=== PATIENT | male | born 1990 | race Hispanic/Latino ===

== ENCOUNTER 2017-08-18 18:06 | Emergency (ER) | payer OTHER ==
[2017-08-18 18:18] VITALS: BMI 34.2
[2017-08-18 18:28] LABS: BASO % 0.3 % (0.0-2.0); EOS # 0.3 K/uL (0.0-0.7); HEMOGLOBIN 16.8 g/dL (12.0-18.0); LYMPH # 5.9 K/uL (1.0-4.3); LYMPH % 38.8 % (20.0-40.0); MEAN CELL VOLUME 87.2 fL (80.0-94.0); MEAN CORPUSCULAR HGB CONC 33.2 g/dL (33.0-37.0); MEAN PLATELET VOLUME 10.2 fL (7.2-11.7); MONO # 0.8 K/uL (0.0-0.8); MONO % 5.4 % (0.0-10.0); NEUT # 8.2 K/uL (1.8-7.0); NEUT % 53.5 % (50.0-75.0); RBC 5.8 Mil/uL (4.40-5.90); RED CELL DISTRIBUTION WIDTH 13.7 % (11.5-14.5); WHITE BLOOD COUNT 15.3 K/uL (4.8-10.8)
[2017-08-18 18:40] LABS: ALB/GLOB RATIO 1.2 (1.0-2.1); ALBUMIN 4.8 g/dL (3.5-5.0); ALT/SGPT 17 U/L (21-72); AST/SGOT 20 U/L (17-59); BLOOD UREA NITROGEN 13 mg/dL (9-20); CALCIUM 9.6 mg/dl (8.6-10.4); GFR AFRICAN-AMERICAN > 60; GFR NON-AFRICAN AMERICAN > 60
[2017-08-18] MEDS ORDERED: Iodixanol 320 MG/ML 100 ML BOTTLE IV ONE (18:46)
[2017-08-18] MEDS ORDERED: Dexamethasone 4 mg/1 ml IVP STA (18:47)
[2017-08-18] MEDS ORDERED: levETIRAcetam 1,000 MG in Sodium Chloride 0.9% 100 ML IVPB SCH (19:00)
--- NOTE | 2017-08-18 19:07 | CT ---
EXAM: CT Head Without Intravenous Contrast EXAM DATE/TIME: 08/18/2017 6:18 PM CLINICAL HISTORY: 27 years old, male; Signs and symptoms; Syncope and collapse and other: Seizure; Additional info: Seizure, word finding, ? temporal TECHNIQUE: Axial computed tomography images of the head/brain without intravenous contrast. All CT scans at this facility use one or more dose reduction techniques, viz.: automated exposure control; ma/kV adjustment per patient size (including targeted exams where dose is matched to indication; i.e. head); or iterative reconstruction technique. COMPARISON: There are no prior studies for comparison. FINDINGS: Brain: There is a poorly defined solid and cystic mass in the left frontoparietal region. Mass measures at least 6.5 x 4.5 cm. There may be small foci of hemorrhage within the lesion versus calcification. There is surrounding vasogenic edema. There is effacement of adjacent sulci and gyri. There is partial effacement of the left lateral ventricle. There is mass effect with 8 mm midline shift to the right. Fourth ventricle is midline. No other masses are identified. Kamara-white differentiation is visualized. Ventricles: See above Bones: Cranial vault is intact. Soft tissues: unremarkable Sinuses: There is no acute sinusitis. Ears and mastoids: Middle ears and mastoids are unremarkable. Orbits: Globes are intact. IMPRESSION: Complex 6.5 x 4.5 cm left frontoparietal mass small foci of hemorrhage, mass effect with 8 mm midline shift to the right findings are suspicious for neoplasm MRI suggested for more complete evaluation Findings were discussed with Jose Duque at 7:06 PM EST on 08/18/2017.
--- NOTE | 2017-08-18 19:08 | C.PDOC ---
History Of Present Illness Patient is a 27 y/o male who presents to the ED BIBA s/p first seizure at home. Patient admits to taking Adderall for ADHD. Reports seizure to be witnessed with tonic-clonic activity. In ED, patient seized and collapsed in front of bed with tonic-clonic activity, negative for stool incontinence; Ativan 2mg IM administered immediately. Though patient initially denies any Hx of seizures or drug use, he admits to using ecstasy, acid, lukasz, and alcohol along with a seizure history at the ages of 10 and 16. No other physical complaints at this time. Time Seen by Provider: 08/18/17 18:17 Chief Complaint (Nursing): Seizure History Per: Patient History/Exam Limitations: no limitations Recent Seizure Activity Began: Just Before Arrival, Mins Ago: (upon arrival) Number Of Seizures: Multiple Recent travel outside of the [place]: No Past Medical History Reviewed: Historical Data, Nursing Documentation, Vital Signs Vital Signs: Last Vital Signs Temp 98.6 F 08/18/17 22:28 Pulse 58 L 08/18/17 22:28 Resp 22 08/18/17 22:28 BP 111/72 08/18/17 22:28 Pulse Ox 97 08/18/17 22:56 - Medical History PMH: No Chronic Diseases Surgical History: No Surg Hx Family History: States: No Known Family Hx - Social History Hx Tobacco Use: No Hx Alcohol Use: No Hx Substance Use: No - Immunization History Hx Tetanus Toxoid Vaccination: No Hx Influenza Vaccination: No Hx Pneumococcal Vaccination: No Review Of Systems Neurological: Positive for: Seizures (one [employer]OR and one upon ED arrival) Physical Exam - Physical Exam Appears: Well, Non-toxic, No Acute Distress Head: Atraumatic, Normacephalic Eye(s): bilateral: Normal Inspection, PERRL, EOMI Oral Mucosa: Moist Chest: Symmetrical Cardiovascular: Rhythm Regular, No Murmur Respiratory: Normal Breath Sounds, No Rales, No Rhonchi, No Wheezing Gastrointestinal/Abdominal: Soft, No Tenderness ED Course And Treatment - Laboratory Results Result Diagrams: 08/18/17 18:25 08/18/17 18:25 O2 Sat by Pulse Oximetry: 97 - Other Rad CTA head X-Ray: Interpreted by Me, Viewed By Me Interpretation: IMPRESSION: Unremarkable cervical carotid and vertebral arteries. Thank you for allowing us to participate in the care of your patient. - CT Scan/US CT Head Other Rad Studies (CT/US): Interpreted By Me, Read By Radiologist CT/US Interpretation: IMPRESSION: Complex 6.5 x 4.5 cm left frontoparietal mass small foci of hemorrhage, mass effect. with 8 mm midline shift to the right findings are suspicious for neoplasm. MRI suggested for more complete evaluation. Findings were discussed with Jose Duque at 7:06 PM EST on . Thank you for allowing us to participate in the care of your patient Progress Note: CT head and neck, EKG, CXR, UA, and blood work ordered. Decadron 10 mg IV, keppra 1 g IV, Ativan 2 mg IM x2, and IV fluids administered. On re- dov 6:15pm, patient is awake and alert but still confused. Upon further questioning, patient admits to PMHx of a seizure disorder, noting episodes at the ages 10 and 16. Patient also notes drug use with acid, lukasz, ecstacy, and alcohol. Denies any local neurologist. On follow-up re-eval, patient notes headache pain in left frontal area for the last 3 months. Admits to being unable to taste with sensation changes, drooling, and waxing and waning paresthesia of right arm and right leg. Patient adds right foot was numb this morning. 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 Previous Head CT normal from last seizure at age 16. Patient is stable for transfer to [facility]. 20:00 - Discussed case with Dr. Lafleur. Assess that patient will require neuronavigation which is not available at this facility. Suggest transfer to [facility]. 08/18 20:15 Spoke with neurosurgery at [facility] resident [facility] who accepts the patient under service of Dr. Bunny castellano. Findings and plan discussed with the patient who agrees. Will transfer the patient. Patient left ER at 22:45 via ALS to [facility] ER Critical Care Time - Critical Care Note Total Time (in mins): 90 Documented critical care: time excludes all time spent performing seperately billable procedures. Disposition Doctor Will See Patient In The: Hospital Counseled Patient/Family Regarding: Studies Performed, Diagnosis - Disposition Disposition: Trans to Other Acute Care Hosp Disposition Time: 22:30 Condition: GOOD Forms: [employer] ([place]) - Clinical Impression Clinical Impression: Tonic-clonic seizure, Brain tumor - Scribe Statement The provider has reviewed the documentation as recorded by the Scribe Ann Marie Hernandez All medical record entries made by the Scribe were at my direction and personally dictated by me. I have reviewed the chart and agree that the record accurately reflects my personal performance of the history, physical exam, medical decision making, and the department course for this patient. I have also personally directed, reviewed, and agree with the discharge instructions and disposition.
--- NOTE | 2017-08-18 20:02 | CT ---
EXAM: CT Angiography Head With Intravenous Contrast CLINICAL HISTORY: 27 years old, male; Signs and symptoms; Speech disturbance and syncope and collapse; Slurred speech; Additional info: L temporal mass on CT, first seizure TECHNIQUE: Axial computed tomographic angiography images of the head with intravenous contrast using CT angiography protocol. All CT scans at this facility use one or more dose reduction techniques, viz.: automated exposure control; ma/kV adjustment per patient size (including targeted exams where dose is matched to indication; i.e. head); or iterative reconstruction technique. MIP reconstructed images were created and reviewed. Coronal and sagittal reformatted images were created and reviewed. CONTRAST: 100 mL of visipaque 320 administered intravenously. COMPARISON: No relevant prior studies available. FINDINGS: Right internal carotid artery: No acute findings. Intracranial segment is patent with no significant stenosis. No aneurysm. Right anterior cerebral artery: Unremarkable. No occlusion or significant stenosis. No aneurysm. Right middle cerebral artery: Unremarkable. No occlusion or significant stenosis. No aneurysm. Right posterior cerebral artery: Unremarkable. No occlusion or significant stenosis. No aneurysm. Right vertebral artery: Unremarkable as visualized. Left internal carotid artery: No acute findings. Intracranial segment is patent with no significant stenosis. No aneurysm. Left anterior cerebral artery: Unremarkable. No occlusion or significant stenosis. No aneurysm. Left middle cerebral artery: Unremarkable. No occlusion or significant stenosis. No aneurysm. Left posterior cerebral artery: Unremarkable. No occlusion or significant stenosis. No aneurysm. Left vertebral artery: Unremarkable as visualized. Basilar artery: Unremarkable. No occlusion or significant stenosis. No aneurysm. Complex 6.5 x 4.5 left frontoparietal mass is again identified, as seen on CT scan from earlier today. This causes significant displacement of the regional structures. There are vessels coursing through the mass and is well as draped around the mass. No evidence of large draining veins to suggest significant arteriovenous shunting. See CT scan report for additional information. IMPRESSION: No intracranial aneurysm, vessel occlusion, or significant stenosis. Complex solid and cystic mass left frontoparietal region. 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 The EXAM: CT Angiography Neck With Intravenous Contrast CLINICAL HISTORY: 27 years old, male; Signs and symptoms; Speech disturbance and syncope and collapse; Slurred speech; Additional info: L temporal mass on CT, first seizure TECHNIQUE: Axial computed tomographic angiography images of the neck with intravenous contrast using CT angiography protocol. All CT scans at this facility use one or more dose reduction techniques, viz.: automated exposure control; ma/kV adjustment per patient size (including targeted exams where dose is matched to indication; i.e. head); or iterative reconstruction technique. MIP reconstructed images were created and reviewed. Coronal and sagittal reformatted images were created and reviewed. CONTRAST: 100 mL of visipaque 320 administered intravenously. COMPARISON: CT - HEAD W/O CONTRAST 2017-08-18 18:30 FINDINGS: VASCULATURE: Right common carotid artery: Unremarkable. No significant stenosis. No dissection or occlusion. Right internal carotid artery: Unremarkable. Extracranial segment is patent with no significant stenosis. No dissection or occlusion. Right external carotid artery: Unremarkable. No occlusion. Right vertebral artery: Unremarkable. No significant stenosis. No dissection or occlusion. Left common carotid artery: Unremarkable. No significant stenosis. No dissection or occlusion. Left internal carotid artery: Unremarkable. Extracranial segment is patent with no significant stenosis. No dissection or occlusion. Left external carotid artery: Unremarkable. No occlusion. Left vertebral artery: Unremarkable. No significant stenosis. No dissection or occlusion. NECK: Bones/joints: No acute fracture. No dislocation. Soft tissues: Unremarkable as visualized. No mass. CAROTID STENOSIS REFERENCE USING NASCET CRITERIA: % ICA stenosis = (1 - narrowest ICA diameter/diameter of distal cervical ICA) x 100. Mild - <50% stenosis. Moderate - 50-69% stenosis. Severe - 70-94% stenosis. Near occlusion - 95-99% stenosis. Occluded - 100% stenosis. IMPRESSION: Unremarkable cervical carotid and vertebral arteries.
[2017-08-18 20:30] LABS: SQUAMOUS EPITHIAL < 1 /hpf (0-5); URINE BACTERIA RARE (<OCC); URINE BILIRUBIN NEGATIVE (NEGATIVE); URINE BLOOD NEGATIVE (NEGATIVE); URINE CLARITY Clear (Clear); URINE COLOR Yellow (YELLOW); URINE GLUCOSE (UA) NORMAL (Normal); URINE LEUKOCYTE ESTERASE NEG Leu/uL (Negative); URINE NITRATE NEGATIVE (NEGATIVE); URINE PROTEIN 1+ mg/dL (NEGATIVE); URINE UROBILINOGEN NORMAL mg/dL (0.2-1.0)
[2017-08-18 20:47] LABS: BARBITURATES, UR NEGATIVE (NEGATIVE); BENZODIAZEPINES, UR NEGATIVE (NEGATIVE); OPIATES, UR NEGATIVE (NEGATIVE); PHENCYCLIDINE, UR NEGATIVE (NEGATIVE)
[2017-08-18 21:56] VITALS: RESP 22
[2017-08-18 22:28] VITALS: BP 111/72; PULSE 58; TEMP 98.6
[2017-08-18 22:56] VITALS: O2SAT 97
--- NOTE | 2017-08-19 08:31 | RAD ---
Chest x-ray single frontal view History: Seizure. Comparison: None available. Findings No focal infiltrate or effusion. Heart size within normal limits. Impression No focal infiltrate or effusion.
--- NOTE | 2017-08-20 13:57 | CARD ---
APPROVED REPORT EKG Measurement Heart [id number] <Conclusion> Normal sinus rhythm Cannot rule out Inferior infarct, age undetermined Abnormal ECG
== END 2017-08-18 22:35 | disposition short-term general hospital (02) ==
LOC: C.ER 18:06
DX: G40.909 Epilepsy, unspecified, not intractable, without status epilepticus (principal); D49.6 Neoplasm of unspecified behavior of brain
CPT/HCPCS: 70450; 70496; 70498; 71045; 80053; 80320; 80324; 80345; 80346; 80349; 80353; 80358; 80361; 81001; 82550; 82948; 83992; 85025; 93005; 96372; 96374; 96375; 99291; 99292; J1100; J1953; J2060; Q9967